=== PATIENT | male | born 1995 | race Caucasian/White ===

== ENCOUNTER → 2016-04-30 | Outpatient (CLI) | payer BC, OTHER ==
[2016-04-30 16:48] LABS: BASO % 0.3 %; BASO ABS # 0.04 K/uL (0-0.2); COMPLETE YES; EOS % 0.7 %; IG% 0.7 %; LYMPH % 23.9 %; LYMPH ABS # 2.89 K/uL (1.2-3.4); MEAN CELL VOLUME 82.4 fL (80-100); MEAN CORPUSCULAR HEMOGLOBIN 29.6 pg (25-34); MEAN CORPUSCULAR HGB CONC 35.9 g/dl (32-36); MEAN PLATELET VOLUME 10.1 fL (7.4-10.4); MONO % 7.4 %; PLATELET COUNT 371 K/uL (130-400); RED BLOOD COUNT 5.34 M/uL (4.7-6.1); WHITE BLOOD COUNT 12.09 K/uL (4.8-10.8)
[2016-04-30 17:16] LABS: ALT/SGPT 27 U/L (12-78); AST/SGOT 20 U/L (15-37); BLOOD UREA NITROGEN 16 mg/dl (7-18); CALCIUM 9.9 mg/dl (8.5-10.1); CARBON DIOXIDE 29 mmol/L (21-32); CHLORIDE 103 mmol/L (98-107); CREATININE 0.97 mg/dl (0.60-1.40); GLUCOSE 86 mg/dl (70-99); POTASSIUM 4.6 mmol/L (3.5-5.1); SODIUM 140 mmol/L (136-145)
[2016-04-30 17:27] LABS: ALB/GLOB RATIO 0.9 (0.9-2); ALKALINE PHOSPHATASE 74 U/L (45-117)
== END | disposition home or self-care (01) ==
LOC: C.LABBFT 12:28
PROVIDERS: ATTEND Internal Medicine
DX: R03.0 Elevated blood-pressure reading, without diagnosis of hypertension (principal)

== ENCOUNTER → 2016-05-02 | Outpatient (CLI) | payer OTHER ==
--- NOTE | 2016-05-02 14:47 | ECHOCARDIOGRAM REPORT ---
*NOTICE TO RECEIVING DEMOCRAT AGENCY This information is strictly Confidential and protected under [place] law. [place] law prohibits you from making any further disclosure of this information unless further disclosure is expressly permitted by the written consent of the person to whom it pertains or is authorized by law. A general authorization for the release of medical or other information is not sufficient for this purpose. Hospital accepts no responsibility if the information is made available to any other person, INCLUDING THE PATIENT. Interpretation Summary * Name: RAQUEL GARVIN Study Date: 05/02/2016 01:11 PM BP: 133/59 mmHg * Patient Location: [facility] HR: 82 * : 1995 (M/d/yyyy) Gender: Male Height: 68 in * Age: 20 yrs Ethnicity: [place] Weight: 143 lb * Ordering Physician: Beltran Luke * Referring Physician: Beltran Luke * Performed By: Chasity Muñoz RDCS * * Reason For Study: HEART MURMUR, TACHYCARDIA * BSA: 1.8 m2 * History: HEART MURMUR, TACHYCARDIA * -- Conclusions -- * Mild pulmonic valvular regurgitation. * Pulmonic insufficiency end diastolic velocity of 0.8 m/s is consistent with normal PA diastolic pressure. * Otherwise unremarkable study. Procedure Details * A complete two-dimensional transthoracic echocardiogram was performed (2D, M-mode, Doppler and color flow Doppler). Left Ventricle * The left ventricle is normal in size. * There is normal left ventricular wall thickness. * Ejection Fraction = 55-60%. * Left ventricular systolic function is normal. * The left ventricular wall motion is normal. Right Ventricle * The right ventricle is normal in size and function. Atria * The left atrial size is normal. * Right atrial size is normal. * The interatrial septum is intact with no evidence for an atrial septal defect. Mitral Valve * The mitral valve is normal in structure and function. * There is no mitral regurgitation noted. Tricuspid Valve * The tricuspid valve is normal in structure and function. * There is trace tricuspid regurgitation. Aortic Valve * The aortic valve is trileaflet. * The aortic valve is normal in structure and function. * No hemodynamically significant valvular aortic stenosis. * No aortic regurgitation is present. Pulmonic Valve * The pulmonary valve is not well seen, but the Doppler examination is normal without significant regurgitation or stenosis. * Mild pulmonic valvular regurgitation. * Pulmonic insufficiency end diastolic velocity of 0.8 m/s is consistent with normal PA diastolic pressure. Great Vessels * The aortic root is normal size. * No obvious dissection could be visualized. * The pulmonary artery is not well visualized, but is probably normal size. Pericardium/Pleural * There is no pericardial effusion. Great Vessels * Normal inferior vena cava diameter and respiratory variation suggests normal central venous pressure. MMode 2D Measurements and Calculations IVSd 0.68 cm IVSs 1.0 cm LVIDd 5.2 cm LVIDs 3.8 cm LVPWd 0.85 cm LVPWs 1.3 cm IVS/LVPW 0.80 FS 27.1 % EDV(Teich) 129.0 ml ESV(Teich) 61.3 ml EF(Teich) 52.5 % EDV(cubed) 139.9 ml ESV(cubed) 54.2 ml EF(cubed) 61.3 % % IVS thick 48.9 % % LVPW thick 51.2 % LV mass(C)d 136.4 grams LV mass(C)dI 77.0 grams/m\S\2 LV mass(C)s 142.1 grams LV mass(C)sI 80.2 grams/m\S\2 SV(Teich) 67.7 ml SI(Teich) 38.2 ml/m\S\2 SV(cubed) 85.8 ml SI(cubed) 48.4 ml/m\S\2 Ao root diam 3.3 cm Ao root area 8.3 cm\S\2 LA dimension 3.4 cm LA/Ao 1.0 LVAd ap4 39.0 cm\S\2 LVLd ap4 9.8 cm EDV(MOD-sp4) 131.8 ml EDV(sp4-el) 132.1 ml LVAs ap4 23.8 cm\S\2 LVLs ap4 8.3 cm ESV(MOD-sp4) 57.8 ml ESV(sp4-el) 57.6 ml EF(MOD-sp4) 56.1 % EF(sp4-el) 56.4 % LVAd ap2 42.6 cm\S\2 LVLd ap2 9.8 cm EDV(MOD-sp2) 154.1 ml EDV(sp2-el) 157.0 ml LVAs ap2 25.2 cm\S\2 LVLs ap2 8.3 cm ESV(MOD-sp2) 65.7 ml ESV(sp2-el) 65.1 ml EF(MOD-sp2) 57.4 % EF(sp2-el) 58.5 % LVLd %diff 0.25 % EDV(MOD-bp) 143.3 ml LVLs %diff -0.79 % ESV(MOD-bp) 61.6 ml EF(MOD-bp) 57.0 % SV(MOD-sp4) 74.0 ml SI(MOD-sp4) 41.7 ml/m\S\2 SV(MOD-sp2) 88.4 ml SI(MOD-sp2) 49.9 ml/m\S\2 SV(MOD-bp) 81.8 ml SI(MOD-bp) 46.1 ml/m\S\2 SV(sp4-el) 74.5 ml SI(sp4-el) 42.0 ml/m\S\2 SV(sp2-el) 91.9 ml SI(sp2-el) 51.9 ml/m\S\2 Doppler Measurements and Calculations MV E max aleta 65.2 cm/sec MV dec time 0.28 sec Ao V2 max 123.1 cm/sec Ao max PG 6.1 mmHg Ao max PG (full) 2.9 mmHg LV V1 max PG 3.1 mmHg LV V1 max 88.3 cm/sec
== END | disposition home or self-care (01) ==
LOC: C.CPL 13:00
PROVIDERS: ATTEND Internal Medicine
DX: R00.0 Tachycardia, unspecified (principal); R03.0 Elevated blood-pressure reading, without diagnosis of hypertension